=== PATIENT | male | born 1950 | race Caucasian/White ===

== ENCOUNTER 2017-08-16 15:55 | Inpatient (IN) | payer MEDICARE ==
[~2017-08-16] VITALS: Ht 180.3 cm; Wt 181.6 kg
[~2017-08-16 15:55] MED LIST: ASPI81 PO; HYDR-3535 PO; MOBI7.5T PO; SIMV80TA PO; TAB-TAB PO; VITA100017 PO
[2017-08-16 16:04] VITALS: BP 170/71; PULSE 67; RESP 32; TEMP 100.2; O2SAT 88
[2017-08-16] MEDS ORDERED: methylPREDNISolone SOD SUCC 125 MG/2 ML VIAL IV PUSH ONE (16:30)
[2017-08-16] MEDS ORDERED: SIMV80TA PO (16:32)
[2017-08-16] MEDS ORDERED: FISHCAP4 PO (16:32)
[2017-08-16] MEDS ORDERED: MULTTAB67 PO (16:32)
[2017-08-16] MEDS ORDERED: HYDR-3583 PO (16:32)
[2017-08-16] MEDS ORDERED: MELO7.5T27 PO (16:32)
[2017-08-16] MEDS ORDERED: LISI10TA3 PO (16:32)
[2017-08-16] MEDS ORDERED: ASPI-516 CHEW (16:32)
[2017-08-16] MEDS ORDERED: METF500T PO (16:32)
--- NOTE | 2017-08-16 16:37 | PD ---
HPI Chief Complaint: Cold / Flu Symptoms Time Seen by Provider: 16:30 Travel History International Travel<30 days: No Contact w/Intl Traveler<30days: No Traveled to known affect area: No History of Present Illness HPI 66-year-old male complains of cough and congestion fever and shortness of breath. Patient states that his symptoms started 4 days ago. Patient states that he has aching headache frontal headache. Patient denies any visual change. Patient denies any neck pain. Patient states he had productive cough. Patient complained of shortness of breath. Patient denies any chest pain. Patient states that he has nausea. Patient denies any vomiting or diarrhea. Patient denies any back pain. Patient complains generalized malaise and weakness. Patient denies history of COPD or asthma. Patient use his sister's inhaler occasionally for shortness of breath. PFSH Past Medical History Hx Anticoagulant Therapy: No Arthritis: Yes Cancer: No Cardiovascular Problems: No High Cholesterol: Yes Chemotherapy: No COPD: Yes (sleep apnea) Cerebrovascular Accident: No Diabetes: Yes Patient Takes Glucophage: Yes Diminished Hearing: No Endocrine: No Gastrointestinal Disorders: Yes (RECENT SAMONELLA ) Genitourinary: No Hepatitis: No Hiatal Hernia: No Hypertension: Yes Immune Disorder: No Medical other: Yes (AAA) Musculoskeletal: Yes (ARTHRITIS) Neurologic: No Psychiatric: No Reproductive: No Respiratory: Yes (SLEEP APNEA/ CPAP) Thyroid Disease: No Tetanus Vaccination: Unknown Past Surgical History Abdominal Surgery: Yes (UMB. HERNIA REP.) AICD: No Cardiac Surgery: No Ear Surgery: No Endocrine Surgery: No Eye Surgery: Yes (keaton cataract removal) Genitourinary Surgery: No Gynecologic Surgery: No Joint Replacement: Yes (KEATON. KNEES) Neurologic Surgery: No Oral Surgery: No Pacemaker: No Thoracic Surgery: No Other Surgery: Yes (sebacious cyst removal neck ) Social History Alcohol Use: No Tobacco Use: Yes (1PPD) Substance Use: No Allergies-Medications (Allergen,Severity, Reaction): Coded Allergies: penicillin G (Unverified Allergy, Unknown, 08/16/17) Uncoded Allergies: CILLINS (Allergy, Severe, 03/07/15) Reported Meds & Prescriptions Reported Meds & Active Scripts Active Reported Fish Oil + D3 (Fish Oil-Cholecalciferol) 1,200-1,000 Mg-Unit Cap 1 Cap PO DAILY Hydrocodone-Acetaminophen 10-325 mg Tab 1 Tab PO Q6H PRN Meloxicam 7.5 Mg Tab 7.5 Mg PO BID Multiple Vitamin 1 Tab 1 Tab PO DAILY Metformin (Metformin HCl) 500 Mg Tab 500 Mg PO BIDPC Lisinopril 10 Mg Tab 10 Mg PO DAILY Simvastatin 80 Mg Tab 80 Mg PO DAILY Aspirin 81 Mg Chew 81 Mg CHEW DAILY Review of Systems General / Constitutional: Positive: Fever Eyes: No: Visual changes HENT: Positive: Headaches Cardiovascular: No: Chest Pain or Discomfort Respiratory: Positive: Cough, Shortness of Breath Gastrointestinal: Positive: Nausea, No: Abdominal Pain Genitourinary: No: Dysuria Musculoskeletal: No: Pain Skin: No Rash Neurologic: No: Weakness Psychiatric: No: Depression Endocrine: No: Polydipsia Hematologic/Lymphatic: No: Easy Bruising Physical Exam Narrative GENERAL: Well-nourished, well-developed patient. SKIN: Focused skin assessment warm/dry. HEAD: Normocephalic. EYES: No scleral icterus. No injection or drainage. NECK: Supple, trachea midline. No JVD or lymphadenopathy. CARDIOVASCULAR: Regular rate and rhythm without murmurs, gallops, or rubs. RESPIRATORY: Breath sounds equal bilaterally. No accessory muscle use. Patient has moderate amount of expiratory wheezes bilaterally. Patient has rhonchi bibasilar. GASTROINTESTINAL: Abdomen soft, non-tender, nondistended. MUSCULOSKELETAL: No cyanosis, or edema. BACK: Nontender without obvious deformity. No CVA tenderness. Neurologic exam normal. Data Data Last Documented VS Vital Signs Date Time Temp Pulse Resp B/P (MAP) Pulse Ox O2 Delivery O2 Flow Rate FiO2 08/16/17 16:50 65 28 112/54 (73) 94 Nasal Cannula 3.00 08/16/17 16:04 100.2 Orders Orders Complete Blood Count With Diff (08/16/17 16:30) Comprehensive Metabolic Panel (08/16/17 16:30) B-Type Natriuretic Peptide (08/16/17 16:30) Act Partial Throm Time (Ptt) (08/16/17 16:30) Prothrombin Time / Inr (Pt) (08/16/17 16:30) Ckmb (Isoenzyme) Profile (08/16/17 16:30) Troponin I (08/16/17 16:30) Influenzae A/B Antigen (08/16/17 16:30) Blood Culture (08/16/17 16:30) Iv Access Insert/Monitor (08/16/17 16:30) Electrocardiogram (08/16/17 16:30) Ecg Monitoring (08/16/17 16:30) Oximetry (08/16/17 16:30) Oxygen Administration (08/16/17 16:30) Chest, Single Ap (08/16/17 16:30) Sodium Chloride 0.9% Flush (Ns Flush) (08/16/17 16:30) Methylprednisolone So Succ Inj (Solumedr (08/16/17 16:30) Albuterol-Ipratropium Neb (Duoneb Neb) (08/16/17 16:30) Lactic Acid (08/16/17 16:30) CKMB (08/16/17 16:30) CKMB% (08/16/17 16:30) Levofloxacin 750 Mg Premix Inj (Levaquin (08/16/17 17:30) Labs Laboratory Tests Test 08/16/17 16:30 White Blood Count 6.5 TH/MM3 Red Blood Count 3.95 MIL/MM3 Hemoglobin 12.2 GM/DL Hematocrit 37.0 % Mean Corpuscular Volume 93.5 FL Mean Corpuscular Hemoglobin 30.9 PG Mean Corpuscular Hemoglobin Concent 33.0 % Red Cell Distribution Width 17.4 % Platelet Count 122 TH/MM3 Mean Platelet Volume 8.1 FL Neutrophils (%) (Auto) 84.9 % Lymphocytes (%) (Auto) 9.7 % Monocytes (%) (Auto) 4.9 % Eosinophils (%) (Auto) 0.0 % Basophils (%) (Auto) 0.5 % Neutrophils # (Auto) 5.6 TH/MM3 Lymphocytes # (Auto) 0.6 TH/MM3 Monocytes # (Auto) 0.3 TH/MM3 Eosinophils # (Auto) 0.0 TH/MM3 Basophils # (Auto) 0.0 TH/MM3 CBC Comment DIFF FINAL Differential Comment Prothrombin Time 10.8 SEC Prothromb Time International Ratio 1.1 RATIO Activated Partial Thromboplast Time 28.0 SEC Blood Urea Nitrogen 12 MG/DL Creatinine 0.85 MG/DL Random Glucose 151 MG/DL Total Protein 8.3 GM/DL Albumin 3.7 GM/DL Calcium Level 8.5 MG/DL Alkaline Phosphatase 57 U/L Aspartate Amino Transf (AST/SGOT) 55 U/L Alanine Aminotransferase (ALT/SGPT) 45 U/L Total Bilirubin 0.5 MG/DL Sodium Level 134 MEQ/L Potassium Level 4.0 MEQ/L Chloride Level 100 MEQ/L Carbon Dioxide Level 24.8 MEQ/L Anion Gap 9 MEQ/L Estimat Glomerular Filtration Rate 90 ML/MIN Lactic Acid Level 1.4 mmol/L Total Creatine Kinase 372 U/L Creatine Kinase MB 2.6 NG/ML Creatine Kinase MB % 0.7 % Troponin I 0.02 NG/ML B-Type Natriuretic Peptide 66 PG/ML MDM Medical Decision Making Medical Screen Exam Complete: Yes Emergency Medical Condition: Yes Interpretation(s) 1723 PM. CBC WBC 6.5. Hemoglobin 12.2 hematocrit 37.0. Platelet 122. 84 neutrophil. Sodium 134. Lactic acid 1.4. AST 55. Cardiac enzymes are normal. BNP 66. Influenza AB antigen negative. Differential Diagnosis Differential diagnosis including bronchitis, pneumonia, acted with disease, viral syndrome. Narrative Course 66-year-old male with headache, fever, coughing congestion and shortness of breath. Albuterol with Atrovent unit dose treatment 3. Solu-Medrol 125 mg IV. Levaquin 750 mg IV given. 1733 PM. Reexamination patient still has moderate amount of expiratory wheezes. Patient still complaining of shortness of breath. Diagnosis Primary Impression: Reactive airway disease Qualified Codes: J45.41 - Moderate persistent asthma with (acute) exacerbation Additional Impression: Bronchitis Admitting Information Admitting Physician Requests: Admit Stephan Zelaya MD Aug 16, 2017 16:37
[2017-08-16] MEDS: RESP: ALBUTEROL 2.5 MG/IPRATROPIUM 0.5 MG NEB (SCH) INH (16:40)
[2017-08-16 16:43] VITALS: O2SAT 93
[2017-08-16 16:50] VITALS: BP 112/54; PULSE 65; RESP 28; O2SAT 94
[2017-08-16 16:50] LABS: AUTOMATED NEUTROPHIL # 5.6 TH/MM3 (1.8-7.7); BASOPHIL % 0.5 % (0.0-2.0); HEMOGLOBIN 12.2 GM/DL (13.0-17.0); LYMPH % 9.7 % (9.0-44.0); LYMPHOCYTE # 0.6 TH/MM3 (1.0-4.8); MEAN CELL VOLUME 93.5 FL (80.0-100.0); MEAN CORPUSCULAR HEMOGLOBIN 30.9 PG (27.0-34.0); MEAN PLATELET VOLUME 8.1 FL (7.0-11.0); MONO % 4.9 % (0.0-8.0); MONOCYTE # 0.3 TH/MM3 (0-0.9); NEUT % 84.9 % (16.0-70.0); PLATELET COUNT 122 TH/MM3 (150-450); RED BLOOD COUNT 3.95 MIL/MM3 (4.50-5.90); RED CELL DISTRIBUTION WIDTH 17.4 % (11.6-17.2); WHITE BLOOD COUNT 6.5 TH/MM3 (4.0-11.0)
[2017-08-16 17:01] LABS: CHLORIDE 100 MEQ/L (98-107); SODIUM (NA) 134 MEQ/L (136-145)
[2017-08-16 17:04] LABS: CALCIUM 8.5 MG/DL (8.5-10.1)
[2017-08-16 17:05] LABS: ALBUMIN 3.7 GM/DL (3.4-5.0); BICARBONATE 24.8 MEQ/L (21.0-32.0); BLOOD UREA NITROGEN 12 MG/DL (7-18); GLUCOSE,RANDOM 151 MG/DL (74-106)
[2017-08-16 17:06] LABS: INTERNATIONAL NORMALIZED RATIO 1.1 RATIO; PROTHROMBIN TIME - PATIENT 10.8 SEC (9.8-11.6)
[2017-08-16 17:08] LABS: ALT (GPT) 45 U/L (12-78); AST (GOT) 55 U/L (15-37); CREATININE 0.85 MG/DL (0.60-1.30); GLOMERULAR FILTRATION RATE 90 ML/MIN (>89)
[2017-08-16 17:09] LABS: TOTAL BILIRUBIN ADULT 0.5 MG/DL (0.2-1.0); TOTAL PROTEIN 8.3 GM/DL (6.4-8.2)
[2017-08-16 17:11] LABS: ALKALINE PHOSPHATASE 57 U/L (45-117)
[2017-08-16 17:13] LABS: TROPONIN I 0.02 NG/ML (0.02-0.05)
--- NOTE | 2017-08-16 17:18 | RADRPT ---
EXAM DATE/TIME: 08/16/2017 17:07 [facility] COMPARISON: CHEST SINGLE AP, January 07, 2015, 15:22. INDICATIONS : Shortness of breath. MEDICAL HISTORY : Hypertension. Chronic obstructive pulmonary disease. Aneurysm, abdominal. SURGICAL HISTORY : None. ENCOUNTER: Initial ACUITY: 1 day PAIN SCORE: 0/10 LOCATION: Bilateral chest FINDINGS: There is cardiomegaly, linear scarring in the right midlung and degenerative changes of the spine. No consolidation. CONCLUSION: No acute disease. Jose Gibbs MD on August 16, 2017 at 17:16 Board Certified Radiologist. This report was verified electronically.
[2017-08-16] MEDS ORDERED: LEVOFLOXACIN 750 MG PREMIX INJ 150 ML IV ONE (17:30)
[2017-08-16] MEDS ORDERED: DEXTROSE 50% IN WATER 50 ML VIAL(D50) IV PUSH PRN (18:45)
[2017-08-16] MEDS ORDERED: GLUCAGON 1 MG/ML VIAL OTHER PRN (18:45)
[2017-08-16 20:02] VITALS: BP 155/92; PULSE 69; RESP 22; TEMP 98.5; O2SAT 94
[2017-08-16 20:08] VITALS: O2SAT 93
[2017-08-16] MEDS: RESP: ALBUTEROL 2.5 MG/IPRATROPIUM 0.5 MG NEB (SCH) NEB (20:09)
[2017-08-16] MEDS: INSULIN ASPART SUPPLEMENTAL SCALE SQ SCH (21:58)
[2017-08-16] MEDS: MELOXICAM 7.5 MG TAB PO SCH (22:02)
[2017-08-16] MEDS: ENOXAPARIN SODIUM 40 MG/0.4 ML SYRINGE SQ SCH (22:03)
[2017-08-16] MEDS: methylPREDNISolone SOD SUCC 40 MG/1 ML VIAL IV PUSH SCH (22:03)
[2017-08-16] MEDS: ACETAMINOPHEN/HYDROcodone 325 MG/10 MG TAB PO PRN (22:18)
[2017-08-17] VITALS (7 sets, daily range): BP systolic 135–181; BP diastolic 70–96; PULSE 62–84; RESP 22–24; TEMP 96.5–98.1; O2SAT 92–96
[2017-08-17] MEDS: RESP: ALBUTEROL 2.5 MG/IPRATROPIUM 0.5 MG NEB (SCH) NEB ×7 (00:02→23:11)
[2017-08-17] MEDS: methylPREDNISolone SOD SUCC 40 MG/1 ML VIAL IV PUSH SCH ×3 (06:25→21:30)
[2017-08-17 07:00] LABS: AUTOMATED NEUTROPHIL # 4.2 TH/MM3 (1.8-7.7); BASOPHIL % 0.4 % (0.0-2.0); HEMATOCRIT 34.9 % (39.0-51.0); HEMOGLOBIN 11.6 GM/DL (13.0-17.0); LYMPHOCYTE # 0.7 TH/MM3 (1.0-4.8); MEAN CELL VOLUME 93.6 FL (80.0-100.0); MEAN CORPUSCULAR HGB CONC 33.2 % (32.0-36.0); MEAN PLATELET VOLUME 8.5 FL (7.0-11.0); MONO % 2.1 % (0.0-8.0); MONOCYTE # 0.1 TH/MM3 (0-0.9); NEUT % 83.5 % (16.0-70.0); PLATELET COUNT 111 TH/MM3 (150-450); RED BLOOD COUNT 3.72 MIL/MM3 (4.50-5.90); RED CELL DISTRIBUTION WIDTH 17.1 % (11.6-17.2)
--- NOTE | 2017-08-17 07:07 | HHI.PR ---
Subjective Remarks Still coughing and wheezing. Still requiring oxygen. Objective Vitals Vital Signs Date Time Temp Pulse Resp B/P (MAP) Pulse Ox O2 Delivery O2 Flow Rate FiO2 08/17/17 00:00 98.1 63 22 135/70 (91) 92 08/16/17 20:08 93 Nasal Cannula 3.00 08/16/17 20:02 98.5 69 22 155/92 (113) 94 08/16/17 19:47 08/16/17 16:50 65 28 112/54 (73) 94 Nasal Cannula 3.00 08/16/17 16:50 94 Nasal Cannula 3.00 08/16/17 16:43 93 Nasal Cannula 3.00 08/16/17 16:33 93 Nasal Cannula 3.00 08/16/17 16:16 32 88 Room Air 08/16/17 16:04 100.2 67 32 170/71 (104) 88 Result Diagram: 08/16/17 1630 08/16/17 1630 Other Results Laboratory Tests Test 08/16/17 16:30 08/17/17 05:40 White Blood Count 6.5 TH/MM3 Red Blood Count 3.95 MIL/MM3 Hemoglobin 12.2 GM/DL Hematocrit 37.0 % Mean Corpuscular Volume 93.5 FL Mean Corpuscular Hemoglobin 30.9 PG Mean Corpuscular Hemoglobin Concent 33.0 % Red Cell Distribution Width 17.4 % Platelet Count 122 TH/MM3 Mean Platelet Volume 8.1 FL Neutrophils (%) (Auto) 84.9 % Lymphocytes (%) (Auto) 9.7 % Monocytes (%) (Auto) 4.9 % Eosinophils (%) (Auto) 0.0 % Basophils (%) (Auto) 0.5 % Neutrophils # (Auto) 5.6 TH/MM3 Lymphocytes # (Auto) 0.6 TH/MM3 Monocytes # (Auto) 0.3 TH/MM3 Eosinophils # (Auto) 0.0 TH/MM3 Basophils # (Auto) 0.0 TH/MM3 CBC Comment DIFF FINAL Differential Comment Prothrombin Time 10.8 SEC Prothromb Time International Ratio 1.1 RATIO Activated Partial Thromboplast Time 28.0 SEC Blood Urea Nitrogen 12 MG/DL Creatinine 0.85 MG/DL Random Glucose 151 MG/DL Total Protein 8.3 GM/DL Albumin 3.7 GM/DL Calcium Level 8.5 MG/DL Alkaline Phosphatase 57 U/L Aspartate Amino Transf (AST/SGOT) 55 U/L Alanine Aminotransferase (ALT/SGPT) 45 U/L Total Bilirubin 0.5 MG/DL Sodium Level 134 MEQ/L Potassium Level 4.0 MEQ/L Chloride Level 100 MEQ/L Carbon Dioxide Level 24.8 MEQ/L Anion Gap 9 MEQ/L Estimat Glomerular Filtration Rate 90 ML/MIN Lactic Acid Level 1.4 mmol/L Total Creatine Kinase 372 U/L Creatine Kinase MB 2.6 NG/ML Creatine Kinase MB % 0.7 % Troponin I 0.02 NG/ML B-Type Natriuretic Peptide 66 PG/ML Lab today still pending. Imaging Last Impressions Chest X-Ray 08/16/17 1630 Signed Impressions: Service Date/Time: Wednesday, August 16, 2017 17:07 - CONCLUSION: No acute disease. Jose Gibbs MD Objective Remarks Exam: Morbidly obese white male. 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 Continue Levaquin. He is still on oxygen. Will change to admission status. When his wheezing improves consideration of doing a PFT would be helpful to stratify what kind of underlying lung disease he may have. Dr Garciaiella to take over for me tomorrow. Continue Lovenox for DVT prophylaxis. Syed Ch MD Aug 17, 2017 07:07
[2017-08-17 07:13] LABS: BICARBONATE 26.4 MEQ/L (21.0-32.0); CALCIUM 8.5 MG/DL (8.5-10.1)
[2017-08-17 07:17] LABS: CREATININE 0.76 MG/DL (0.60-1.30)
[2017-08-17] MEDS: INSULIN ASPART SUPPLEMENTAL SCALE SQ SCH ×4 (08:00→21:20)
[2017-08-17] MEDS: MULTIVITAMIN TAB PO SCH (09:17)
[2017-08-17] MEDS: MELOXICAM 7.5 MG TAB PO SCH ×2 (09:17→21:19)
[2017-08-17] MEDS: LISINOPRIL 10 MG TAB PO SCH (09:17)
[2017-08-17] MEDS: metFORMIN HCL 500 MG TAB PO SCH ×2 (09:18→18:00)
[2017-08-17] MEDS: ASPIRIN 81 MG CHEW TAB CHEW SCH (09:18)
[2017-08-17] MEDS: LEVOFLOXACIN 750 MG TAB PO SCH (09:18)
[2017-08-17] MEDS: ATORVASTATIN 40 MG TAB PO SCH (09:18)
[2017-08-17] MEDS: ACETAMINOPHEN/HYDROcodone 325 MG/10 MG TAB PO PRN (09:21)
--- NOTE | 2017-08-17 10:27 | MH ---
cc: Syed Ch MD DATE OF ADMISSION: 08/16/2017 ADMISSION DIAGNOSES: 1. Possible chronic obstructive pulmonary disease with bronchitis and acute exacerbation. 2. Hypertension. 3. Hyperlipidemia 4. Type 2 diabetes mellitus. 5. Abdominal aortic aneurysm. 6. Obstructive sleep apnea. 7. Morbid obesity. 8. Chronic low back pain. 9. History of fatty liver. 10. Mild thrombocytopenia. PERTINENT HISTORY OF PRESENT ILLNESS This is a 66-year-old white male who started with a cough about 4 days ago, with some low grade fever. He has had some gradual increased wheezing and shortness of breath. He has been using a nebulizer machine that his has at home. He came to the ED, where his O2 sat was a little low. He is not on oxygen at home. He has been giving breathing treatments in the ED, but still wheezing and tight and requiring 3 liters of oxygen to maintain his oxygen saturations in the low 90s. He was given Levaquin intravenous. A rapid flu test done was negative. His chest x-ray did not show any obvious infiltrates or pneumonia. He was given some Solu-Medrol in the ED as well. He denies ever being told he had any COPD, but his EHR had listed that he had emphysema and COPD, but I could not find any recent pulmonary function testing to confirm whether he has obstructive process of his lungs. He is admitted for further nebulizer treatments, steroid treatment, antibiotics and oxygen therapy. PAST MEDICAL HISTORY: He has a small abdominal aortic aneurysm. He has type 2 diabetes mellitus, with no diabetic nephropathy and neuropathy. He has hypertension, hyperlipidemia, morbid obesity. He has been using CPAP for several years for obstructive sleep apnea. He has had no cancer, no heart disease, no stroke or seizures. He mentions he had peptic ulcer disease many years ago. He denies any history of colon polyps and had a colonoscopy done in 2016. He has had pneumonia once in the past. PAST SURGICAL HISTORY: He has had bilateral total knee replacements. He has had cataract surgery and a lens implant in both eyes. He had umbilical hernia repaired. He had a cyst removed from the back of his neck, a soft tissue cyst. He had a colonoscopy 12/11/2015. ALLERGIES: HE IS ALLERGIC TO PENICILLIN. MEDICATIONS: He is on meloxicam 7.5 milligrams twice a day, Lortab 10/325 1 every 6 hours for chronic back pain, aspirin 81 milligrams dose, simvastatin 80 milligrams a day, lisinopril 10 milligrams a day, metformin 500 milligrams twice a day. He does not regularly use any inhaler or nebulizer treatments at home. He takes a multivitamin a day and vitamin C. FAMILY HISTORY: His father at 61 of a heart attack. His mother at 76, had multiple problems. She had Alzheimer's disease, pacemaker, thyroid disease. SOCIAL HISTORY: He is . He still smokes 1 pack a day, started smoking at about age 13. He does not use alcohol, is retried. 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 REVIEW OF SYSTEMS: GENERAL: He has had low grade fever. Denies any body aches. He has had just slight headaches. HEENT: He has had just slight runny nose. No sore throat. CARDIOVASCULAR: No pleuritic chest pain or chest pain. No palpitations. PULMONARY: As mentioned. He has no hemoptysis. Cough is primarily dry. He has not been able to get much mucous up, but he does hear mucous in his lungs. GASTROINTESTINAL, ABDOMEN: He did have some couple dry heave episodes today. No vomiting up any gastric material. He had no diarrhea, melena, rectal bleeding, constipation. No abdominal pain. GENITOURINARY: He has been urinating frequently. No dysuria. MUSCULOSKELETAL: Chronic low back pain. EXTREMITIES: He denies any edema. NEUROLOGIC: Without any focal complaints, other than he does have some neuropathy, with some numbness in his toes. PHYSICAL EXAMINATION: GENERAL: Morbidly obese white male, with just slight respiratory distress. VITAL SIGNS: His respirations are 24-28, pulse is 65, temperature was 100.2, O2 saturation 94% on 3 liters. HEENT, NECK: TMs clear. Nose, neck and mouth without any inflammation, bleeding. No JVD. No bruit. CARDIOVASCULAR: Regular rate and rhythm. No murmur. PULMONARY: Lungs have scattered wheezes and rhonchi. ABDOMEN: Morbidly obese, which makes exam difficult. No obvious tenderness. EXTREMITIES: With no edema. He has actually good pulses in both feet. Has just some stasis skin changes in the ankle region. NEUROLOGIC: Oriented x 3. Cranial nerves intact. Motor strength symmetrical. LABORATORY DATA, IMAGING: His white count was normal at 6.5, hemoglobin 12.2, MCV normal, platelets were just a little low at 122,000. His sodium was 134, potassium 4.0, chloride 100, CO2 24.8, BUN 12, creatinine 0.85, glucose was 151, AST was 55, ALT 45. He has had a prior CAT scan of his abdomen that showed fatty liver. His total CK was a little high at 372, but his MB was normal and MB percent was normal. Troponin 0.02. Total protein 8.3, albumin 3.7. BNP 66. Lactic acid 1.4. INR 1.1. Chest x-ray showed no acute process. ASSESSMENT: As noted. PLAN: He will be admitted and maintained on oxygen. We will give him Solu-Medrol 40 milligrams every 8 hours. We will maintain him on metformin for his diabetes, but also do some sliding scale coverage for blood sugar elevation since he will be getting steroids. He will be given DuoNeb nebulizer treatments. We will give him some Lovenox for DVT prophylaxis. He can use his own CPAP. MD SOLIS Posey/YANETH , 07:52 PM , 09:08 PM
--- NOTE | 2017-08-17 18:39 | MB ---
cc: Gamaliel Peck MD DATE OF CONSULT: 08/17/2017 REQUESTING PHYSICIAN: Dr. Syed Ch. REASON FOR CONSULTATION: Respiratory insufficiency. HISTORY OF PRESENT ILLNESS: Mr. Montes is a morbidly obese 66-year-old white male with a history of diabetes mellitus, hypertension, obstructive sleep apnea. He uses C-PAP machine at home. He has not been feeling well for at least four days. He has had cough and congestion, increased wheezing, not able to bring up any phlegm, did not have fever or chills, no night sweats. Denies any chest pain. He can barely walk inside the house. He was brought to the hospital. He had a workup done that showed a WBC count of 6.5, hemoglobin 12.2, hematocrit 37, MCV 93, platelet count 122. Sodium 136, potassium 4.4, chloride 102, CO2 26, BUN 15, creatinine 0.76. His INR is 1.1. His chest x-ray shows no acute infiltrate. PAST MEDICAL HISTORY: Significant for: 1. History of hypertension. 2. Diabetes mellitus. 3. Obstructive sleep apnea. 4. Chronic back pain. 5. Morbid obesity. 6. History of thrombocytopenia. 7. Hyperlipidemia. 8. History of both knee replacements. 9. History of large sebaceous cyst removed from the back of his neck. MEDICATIONS: He is currently takin. Aspirin 81 mg. 3. Metformin 500 mg twice per day. 4. Lipitor 40 mg per day. 5. Levaquin 750 mg per day. 6. Solu-Medrol 40 mg q. 8 hours. 7. He is on insulin. 8. Meloxicam 7.5 mg twice per day. 9. Lovenox 40 mg per day. 10. Albuterol Atrovent nebulizer treatment. 11. Hydrocodone 10/325 q. 6 hours p.r.n. ALLERGIES: ALLERGIC TO PENICILLIN. SOCIAL HISTORY: He is for 15-1/2 years. 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 He has a history of smoking since fifth grade and continues to smoke one pack of cigarettes per day. No alcohol use. FAMILY HISTORY: He has no children. REVIEW OF SYSTEMS: He can barely walk. No headache or dizziness. No malignancy. No DVT or pulmonary embolism. PHYSICAL EXAMINATION: GENERAL: Markedly obese male weighing 188 kg. His BMI is 58. He is mildly short of breath even at rest. His blood pressure is 151/85, heart rate 84, respirations 24, temperature 97.7. HEENT EXAMINATION: Pupils are equal and reactive to light. He has had bilateral cataract surgery. Oral mucosa, nasal mucosa normal. NECK: Supple. JVD not raised. CHEST: Bilateral rhonchi. CARDIOVASCULAR: S1, S2 normal. ABDOMEN: Soft, nontender, distended. Bowel sounds are present. EXTREMITIES: 1+ pedal edema. 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 No focal deficit. IMPRESSION: 1. Chronic obstructive pulmonary disease with exacerbation. He still has wheezing. 2. Bronchitis. 3. Obstructive sleep apnea. 4. Morbid obesity. 5. Diabetes mellitus. 6. Hypertension. 7. Arthritis. PLAN: I have discussed with the patient. We will check his pulmonary function studies, check his blood gases. I will also evaluate him for home oxygen therapy. Continue his antibiotic, IV Solu-Medrol, monitor his blood sugar, aerosol treatment with albuterol and Atrovent. Symbicort was started 160/4.5 twice per day. Further treatment will depend upon his course in the hospital. Thank you Dr. Syed Ch for this consult. MD CHRISTINE Chan/JAS , 06:08 PM , 06:38 PM [facility]
--- NOTE | 2017-08-17 20:11 | EKG ---
Date Performed: 08/16/2017 Time Performed: 17:06:17 PTAGE: 66 years EKG: Sinus rhythm PREVIOUS TRACING : 01/07/2015 14.56 Since the previous tracing, no significant change not ed DOCTOR: Dayan Mcnair Interpretating Date/Time 08/17/2017 20:10:42
[2017-08-17] MEDS ORDERED: FUROSEMIDE 20 MG/2 ML VIAL IV PUSH ONE (21:00)
[2017-08-17] MEDS: BUDESONIDE-FORMOTEROL 160/4.5 MCG INHALER INH SCH (21:19)
--- NOTE | 2017-08-17 21:22 | RADRPT ---
EXAM DATE/TIME: 08/17/2017 20:50 [facility] COMPARISON: CHEST SINGLE AP, August 16, 2017, 17:07. INDICATIONS : Short of breath. Cough. MEDICAL HISTORY : Hypertension. Chronic obstructive pulmonary disease. Aneurysm, abdominal. SURGICAL HISTORY : None. ENCOUNTER: Subsequent ACUITY: 2 days PAIN SCORE: 0/10 LOCATION: Bilateral chest FINDINGS: A single view of the chest demonstrates the lungs to be symmetrically aerated without evidence of mas s, infiltrate or effusion. The cardiomediastinal contours are unremarkable. Osseous structures are intact. CONCLUSION: No acute cardiopulmonary disease demonstrated. Walter Ambriz MD on August 17, 2017 at 21:19 Board Certified Radiologist. This report was verified electronically.
[2017-08-17] MEDS: ENOXAPARIN SODIUM 40 MG/0.4 ML SYRINGE SQ SCH (21:30)
[2017-08-18] VITALS: BP 166/79; PULSE 67; RESP 22; TEMP 97.7; O2SAT 94
[2017-08-18] MEDS: RESP: ALBUTEROL 2.5 MG/IPRATROPIUM 0.5 MG NEB (SCH) NEB ×6 (04:19→23:07)
[2017-08-18] MEDS: methylPREDNISolone SOD SUCC 40 MG/1 ML VIAL IV PUSH SCH ×3 (05:12→21:01)
[2017-08-18 07:31] VITALS: O2SAT 93
[2017-08-18] MEDS: INSULIN ASPART SUPPLEMENTAL SCALE SQ SCH ×4 (08:24→22:13)
[2017-08-18] MEDS: MELOXICAM 7.5 MG TAB PO SCH ×2 (08:24→21:01)
[2017-08-18] MEDS: LEVOFLOXACIN 750 MG TAB PO SCH (08:24)
[2017-08-18] MEDS: metFORMIN HCL 500 MG TAB PO SCH ×2 (08:25→17:13)
[2017-08-18] MEDS: LISINOPRIL 10 MG TAB PO SCH (08:25)
[2017-08-18] MEDS: MULTIVITAMIN TAB PO SCH (08:25)
[2017-08-18] MEDS: ASPIRIN 81 MG CHEW TAB CHEW SCH (08:25)
[2017-08-18] MEDS: ACETAMINOPHEN/HYDROcodone 325 MG/10 MG TAB PO PRN ×2 (08:26→13:57)
[2017-08-18] MEDS: ATORVASTATIN 40 MG TAB PO SCH (08:26)
[2017-08-18] MEDS: SODIUM CHLORIDE 0.9% FLUSH 10 ML FLUSH IVF PRN (08:27)
[2017-08-18] MEDS: BUDESONIDE-FORMOTEROL 160/4.5 MCG INHALER INH SCH ×2 (08:27→21:00)
--- NOTE | 2017-08-18 10:47 | HHI.PR ---
Subjective Remarks Patient with continued rhonchi bilateral ,had rales last night given IV lasix and chest xray was unremarkable i discussed with patient should have 3 days of monitoring at rehab. I do not feel he is stable for discharge home . Objective Vitals GENERAL: SKIN: Warm and dry. HEAD: Atraumatic. Normocephalic. EYES: Pupils equal and round. No scleral icterus. No injection or drainage. ENT: No nasal bleeding or discharge. Mucous membranes pink and moist. NECK: Trachea midline. No JVD. CARDIOVASCULAR: Regular rate and rhythm. RESPIRATORY: No accessory muscle use. Bilateral rhonchi bases GASTROINTESTINAL: Abdomen soft, non-tender, nondistended. Hepatic and splenic margins not palpable. MUSCULOSKELETAL: Extremities without clubbing, cyanosis, or edema. No obvious deformities. NEUROLOGICAL: Awake and alert. No obvious cranial nerve deficits. Motor grossly within normal limits. Five out of 5 muscle strength in the arms and legs. Normal speech. PSYCHIATRIC: Appropriate mood and affect; insight and judgment normal. Vital Signs Date Time Temp Pulse Resp B/P (MAP) Pulse Ox O2 Delivery O2 Flow Rate FiO2 08/18/17 07:31 93 Nasal Cannula 3.00 08/18/17 00:00 97.7 67 22 166/79 (108) 94 08/17/17 20:02 94 Nasal Cannula 3.00 08/17/17 20:00 96.5 66 22 160/79 (106) 92 08/17/17 17:18 97.7 84 24 161/85 (110) 93 08/17/17 12:00 96.5 74 24 166/96 (119) 93 Result Diagram: 08/17/17 0540 08/17/17 0540 Imaging Last Impressions Chest X-Ray 08/16/17 1630 Signed Impressions: Service Date/Time: Wednesday, August 16, 2017 17:07 - CONCLUSION: No acute disease. Jose Gibbs MD Objective Remarks Exam: Morbidly obese white male. HEENT: Pupils equal, no scleral icterus, mouth negative Neck: No JVD Heart: RRR Lungs: still scattered wheezing Abdomen: very obese, nontender, soft Extremities: No edema Neuro: Alert, oriented A/P Problem List: (1) Reactive airway disease ICD Codes: J45.909 - Unspecified asthma, uncomplicated Status: Acute Plan: still with rhonchi Pulmonary added symbicort and will need PFT when more stable i believe will need rehab. 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 Continue Levaquin. He is still on oxygen. Will change to admission status. When his wheezing improves consideration of doing a PFT would be helpful to stratify what kind of underlying lung disease he may have. Dr Garciaiella to take over for me tomorrow. Continue Lovenox for DVT prophylaxis. Discharge Planning will attempt to send to rehab Problem Qualifiers (1) Reactive airway disease: Qualified Codes: J45.41 - Moderate persistent asthma with (acute) exacerbation Francesco Knutson MD Aug 18, 2017 10:47
[2017-08-18 11:50] VITALS: BP 159/72; PULSE 61; RESP 20; TEMP 97; O2SAT 91
[2017-08-18 15:41] VITALS: BP 175/79; PULSE 60; RESP 20; TEMP 97.2; O2SAT 90
[2017-08-18 19:40] VITALS: O2SAT 92
--- NOTE | 2017-08-18 20:08 | HHI.PR ---
Subjective Remarks 66 YOMorbidly obese Wm with COPD exac,ISHMAEL Breathing better Slept today Uses CPAP No fever or chills Objective Vital Signs Vital Signs Date Time Temp Pulse Resp B/P (MAP) Pulse Ox O2 Delivery O2 Flow Rate FiO2 08/18/17 15:41 97.2 60 20 175/79 (111) 90 08/18/17 14:57 20 08/18/17 11:50 97.0 61 20 159/72 (101) 91 08/18/17 07:31 93 Nasal Cannula 3.00 08/18/17 00:00 97.7 67 22 166/79 (108) 94 I/O 08/17/17 08/17/17 08/17/17 08/18/17 08/18/17 08/18/17 07:00 15:00 23:00 07:00 15:00 23:00 Intake Total 280 ml 480 ml 460 ml 1080 ml Output Total 1 ml Balance 279 ml 480 ml 460 ml 1080 ml Intake Oral 280 ml 480 ml 460 ml 1080 ml Output Urine Total 1 ml # Voids 2 3 3 # Bowel Movements 0 1 0 0 Result Diagram: 08/17/17 0540 08/17/17 0540 Objective Remarks GENERAL: Morbidly obese Wm, mild sob SKIN: Warm and dry. HEAD: Normocephalic. EYES: No scleral icterus. No injection or drainage. NECK: Supple, trachea midline. No JVD or lymphadenopathy. CARDIOVASCULAR: Regular rate and rhythm without murmurs, gallops, or rubs. RESPIRATORY: Breath sounds equal bilaterally. No accessory muscle use. GASTROINTESTINAL: Abdomen soft, non-tender, nondistended. MUSCULOSKELETAL: No cyanosis, or edema. BACK: Nontender without obvious deformity. No CVA tenderness. A/P Assessment and Plan COPD exac Moebid obesity ISHMAEL DM HTN Arthritis PLAN: Aerosol nebs IV Solumedrol Cont Levaquin Symbicort 2 puffs bid CPAp at night and PRN Gamaliel Peck MD Aug 18, 2017 20:08
[2017-08-18 20:54] VITALS: BP 130/63; PULSE 63; RESP 19; TEMP 97.7; O2SAT 95
[2017-08-18] MEDS: ENOXAPARIN SODIUM 40 MG/0.4 ML SYRINGE SQ SCH (21:01)
[2017-08-19] VITALS (8 sets, daily range): BP systolic 126–163; BP diastolic 58–72; PULSE 51–57; RESP 18–22; TEMP 96.6–97.8; O2SAT 92–97
[2017-08-19] MEDS: RESP: ALBUTEROL 2.5 MG/IPRATROPIUM 0.5 MG NEB (SCH) NEB ×6 (03:42→23:04)
[2017-08-19] MEDS: methylPREDNISolone SOD SUCC 40 MG/1 ML VIAL IV PUSH SCH (05:50)
[2017-08-19] MEDS: INSULIN ASPART SUPPLEMENTAL SCALE SQ SCH ×4 (08:48→20:58)
[2017-08-19] MEDS: LEVOFLOXACIN 750 MG TAB PO SCH (08:48)
[2017-08-19] MEDS: ACETAMINOPHEN/HYDROcodone 325 MG/10 MG TAB PO PRN ×2 (08:49→17:20)
[2017-08-19] MEDS: metFORMIN HCL 500 MG TAB PO SCH ×2 (08:49→17:19)
[2017-08-19] MEDS: SODIUM CHLORIDE 0.9% FLUSH 10 ML FLUSH IVF PRN ×2 (08:49→20:59)
[2017-08-19] MEDS: LISINOPRIL 10 MG TAB PO SCH (08:50)
[2017-08-19] MEDS: MELOXICAM 7.5 MG TAB PO SCH ×2 (08:50→20:55)
[2017-08-19] MEDS: ATORVASTATIN 40 MG TAB PO SCH (08:50)
[2017-08-19] MEDS: MULTIVITAMIN TAB PO SCH (08:50)
[2017-08-19] MEDS: BUDESONIDE-FORMOTEROL 160/4.5 MCG INHALER INH SCH ×2 (08:50→22:22)
[2017-08-19] MEDS: ASPIRIN 81 MG CHEW TAB CHEW SCH (08:50)
[2017-08-19 09:27] LABS: AUTOMATED NEUTROPHIL # 6.2 TH/MM3 (1.8-7.7); BASOPHIL % 0.5 % (0.0-2.0); HEMATOCRIT 39.1 % (39.0-51.0); HEMOGLOBIN 12.9 GM/DL (13.0-17.0); LYMPH % 14.8 % (9.0-44.0); LYMPHOCYTE # 1.1 TH/MM3 (1.0-4.8); MEAN CELL VOLUME 92.1 FL (80.0-100.0); MEAN CORPUSCULAR HEMOGLOBIN 30.3 PG (27.0-34.0); MEAN CORPUSCULAR HGB CONC 32.9 % (32.0-36.0); MEAN PLATELET VOLUME 8.7 FL (7.0-11.0); MONO % 5.1 % (0.0-8.0); MONOCYTE # 0.4 TH/MM3 (0-0.9); NEUT % 79.6 % (16.0-70.0); PLATELET COUNT 139 TH/MM3 (150-450); RED BLOOD COUNT 4.24 MIL/MM3 (4.50-5.90); RED CELL DISTRIBUTION WIDTH 17.1 % (11.6-17.2); WHITE BLOOD COUNT 7.7 TH/MM3 (4.0-11.0)
[2017-08-19 09:48] LABS: CALCIUM 9.1 MG/DL (8.5-10.1)
[2017-08-19 09:49] LABS: BICARBONATE 29.1 MEQ/L (21.0-32.0)
[2017-08-19 09:52] LABS: CREATININE 0.83 MG/DL (0.60-1.30)
--- NOTE | 2017-08-19 10:16 | RSPPFT ---
DATE OF PROCEDURE: 08/18/17 COMMENTS: Spirometry shows FVC of 1.4 at 31% of predicted, FEV1 of 1.1 at 31%, FEV1/FVC ratio is normal. Flow is decreased at FEF 25, FEF 75 and FEF 25-75. There is no response after bronchodilator treatment. IMPRESSION: 1. Findings are suggestive of restrictive lung disease. 2. A complete pulmonary function study will be needed for further evaluation.
--- NOTE | 2017-08-19 10:56 | HHI.FF ---
Face to Face Verification Diagnosis: (1) Reactive airway disease (2) Bronchitis (3) Morbid obesity Physical Therapy Order: Improve ambulation Home Health Nursing Order: Oxygen administration education Instructions: nebulizer treatment instruction I have seen patient Alexandru Montes on 08/19/17. My clinical findings support the need for the requested home health care services because: Patient has SOB Deconditioned w/ increased weakness I certify that my clinical findings support that this patient is homebound because: Hx COPD- exertion dyspnea/weakness Francesco Knutson MD Aug 19, 2017 10:56
--- NOTE | 2017-08-19 11:01 | HHI.PR ---
Subjective Remarks Patient breathing a little better today will change to PO steroids and patient does not want to go to SNF will ask home health to evaluate will need oxygen at home and nebulizer plan for discharge tomorrow. Blood glucose elevated due to steroid use increase metformin to 1000mg bid for now. Objective Vitals GENERAL: SKIN: Warm and dry. HEAD: Atraumatic. Normocephalic. EYES: Pupils equal and round. No scleral icterus. No injection or drainage. ENT: No nasal bleeding or discharge. Mucous membranes pink and moist. NECK: Trachea midline. No JVD. CARDIOVASCULAR: Regular rate and rhythm. RESPIRATORY: No accessory muscle use. Rhonchi bases improving GASTROINTESTINAL: Abdomen soft, non-tender, nondistended. Hepatic and splenic margins not palpable. MUSCULOSKELETAL: Extremities without clubbing, cyanosis, or edema. No obvious deformities. NEUROLOGICAL: Awake and alert. No obvious cranial nerve deficits. Motor grossly within normal limits. Five out of 5 muscle strength in the arms and legs. Normal speech. PSYCHIATRIC: Appropriate mood and affect; insight and judgment normal. Vital Signs Date Time Temp Pulse Resp B/P (MAP) Pulse Ox O2 Delivery O2 Flow Rate FiO2 08/19/17 07:59 92 Nasal Cannula 2.00 08/19/17 07:50 96.9 57 20 126/58 (80) 97 08/19/17 00:00 97.8 52 18 163/72 (102) 93 08/18/17 20:54 97.7 63 19 130/63 (85) 95 08/18/17 19:40 92 Nasal Cannula 2.00 08/18/17 15:41 97.2 60 20 175/79 (111) 90 08/18/17 14:57 20 08/18/17 11:50 97.0 61 20 159/72 (101) 91 Result Diagram: 08/19/17 0840 08/19/17 0840 Imaging Last Impressions Chest X-Ray 08/16/17 1630 Signed Impressions: Service Date/Time: Wednesday, August 16, 2017 17:07 - CONCLUSION: No acute disease. Jose Gibbs MD Objective Remarks Exam: Morbidly obese white male. HEENT: Pupils equal, no scleral icterus, mouth negative Neck: No JVD Heart: RRR Lungs: still scattered wheezing Abdomen: very obese, nontender, soft Extremities: No edema Neuro: Alert, oriented A/P Problem List: (1) Reactive airway disease ICD Codes: J45.909 - Unspecified asthma, uncomplicated Status: Acute Plan: still with rhonchi Pulmonary added symbicort and will need PFT when more stable i believe will need home health to follow does not want SNF (2) Bronchitis ICD Codes: J40 - Bronchitis, not specified as acute or chronic Status: Acute Plan: as above on nebulizer steroids antibiotic (3) Type 2 diabetes mellitus with diabetic neuropathy ICD Codes: E11.40 - Type 2 diabetes mellitus with diabetic neuropathy, unspecified Status: Chronic Plan: increase metformin to 1000 bid (4) Hypertension ICD Codes: I10 - Essential (primary) hypertension Plan: continue home meds (5) Morbid obesity ICD Codes: E66.01 - Morbid (severe) obesity due to excess calories Plan: weight loss discussed Assessment and Plan Assessment: --Possible COPD with bronchitis and acute exacerbation --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 Continue Levaquin. He is still on oxygen. Will change to admission status. When his wheezing improves consideration of doing a PFT would be helpful to stratify what kind of underlying lung disease he may have. Dr Garciaiella to take over for me tomorrow. Continue Lovenox for DVT prophylaxis. Discharge Planning will discharge with home health Problem Qualifiers (1) Reactive airway disease: Qualified Codes: J45.41 - Moderate persistent asthma with (acute) exacerbation Francesco Knutson MD Aug 19, 2017 11:01
[2017-08-19] MEDS ORDERED: OXYGENDME NAS.CANULA (18:46)
[2017-08-19] MEDS ORDERED: NEBULIZER1 MI1 (18:48)
--- NOTE | 2017-08-19 19:16 | HHI.PR ---
Subjective Remarks 66 YOMorbidly obese Wm with COPD exac,ISHMAEL Breathing better Slept today Uses CPAP No fever or chills Weak, difficult to ambulate Objective Vital Signs Vital Signs Date Time Temp Pulse Resp B/P (MAP) Pulse Ox O2 Delivery O2 Flow Rate FiO2 08/19/17 15:50 96.6 56 20 145/68 (93) 94 08/19/17 14:41 93 Nasal Cannula 2.00 08/19/17 11:50 96.8 51 20 131/60 (83) 93 08/19/17 09:49 20 08/19/17 07:59 92 Nasal Cannula 2.00 08/19/17 07:50 96.9 57 20 126/58 (80) 97 08/19/17 00:00 97.8 52 18 163/72 (102) 93 08/18/17 20:54 97.7 63 19 130/63 (85) 95 08/18/17 19:40 92 Nasal Cannula 2.00 I/O 08/18/17 08/18/17 08/18/17 08/19/17 08/19/17 08/19/17 07:00 15:00 23:00 07:00 15:00 23:00 Intake Total 460 ml 1080 ml Balance 460 ml 1080 ml Intake Oral 460 ml 1080 ml # Voids 3 3 4 # Bowel Movements 0 0 Result Diagram: 08/19/17 0840 08/19/17 0840 Objective Remarks GENERAL: Morbidly obese Wm, mild sob SKIN: Warm and dry. HEAD: Normocephalic. EYES: No scleral icterus. No injection or drainage. NECK: Supple, trachea midline. No JVD or lymphadenopathy. CARDIOVASCULAR: Regular rate and rhythm without murmurs, gallops, or rubs. RESPIRATORY: Breath sounds equal bilaterally. No accessory muscle use. GASTROINTESTINAL: Abdomen soft, non-tender, nondistended. MUSCULOSKELETAL: No cyanosis, or edema. BACK: Nontender without obvious deformity. No CVA tenderness. A/P Assessment and Plan COPD exac Moebid obesity ISHMAEL DM HTN Arthritis PLAN: Aerosol nebs IV Solumedrol Cont Levaquin Symbicort 2 puffs bid CPAP at night and PRN DC plans underway. Gamaliel Peck MD Aug 19, 2017 19:16
[2017-08-19] MEDS: ENOXAPARIN SODIUM 40 MG/0.4 ML SYRINGE SQ SCH (20:56)
[2017-08-20] VITALS: BP 155/69; PULSE 60; RESP 22; TEMP 97.7; O2SAT 93
[2017-08-20] MEDS: RESP: ALBUTEROL 2.5 MG/IPRATROPIUM 0.5 MG NEB (SCH) NEB ×3 (04:08→11:28)
[2017-08-20 07:19] VITALS: O2SAT 93
[2017-08-20 08:00] VITALS: BP 139/73; PULSE 59; RESP 26; TEMP 97.5; O2SAT 88
[2017-08-20] MEDS: INSULIN ASPART SUPPLEMENTAL SCALE SQ SCH (08:00)
[2017-08-20 08:13] LABS: AUTOMATED NEUTROPHIL # 5.6 TH/MM3 (1.8-7.7); BASOPHIL # 0.1 TH/MM3 (0-0.2); EOSINOPHIL % 0.2 % (0.0-4.0); HEMATOCRIT 38.1 % (39.0-51.0); HEMOGLOBIN 12.4 GM/DL (13.0-17.0); LYMPH % 33.3 % (9.0-44.0); LYMPHOCYTE # 3.1 TH/MM3 (1.0-4.8); MEAN CELL VOLUME 93.6 FL (80.0-100.0); MEAN CORPUSCULAR HEMOGLOBIN 30.4 PG (27.0-34.0); MEAN CORPUSCULAR HGB CONC 32.4 % (32.0-36.0); MEAN PLATELET VOLUME 8.5 FL (7.0-11.0); MONO % 3.9 % (0.0-8.0); MONOCYTE # 0.4 TH/MM3 (0-0.9); NEUT % 61.6 % (16.0-70.0); PLATELET COUNT 122 TH/MM3 (150-450); RED BLOOD COUNT 4.07 MIL/MM3 (4.50-5.90); WHITE BLOOD COUNT 9.2 TH/MM3 (4.0-11.0)
[2017-08-20] MEDS: metFORMIN HCL 500 MG TAB PO SCH (08:23)
[2017-08-20] MEDS: ATORVASTATIN 40 MG TAB PO SCH (08:23)
[2017-08-20] MEDS: BUDESONIDE-FORMOTEROL 160/4.5 MCG INHALER INH SCH (08:23)
[2017-08-20] MEDS: ASPIRIN 81 MG CHEW TAB CHEW SCH (08:24)
[2017-08-20] MEDS: LEVOFLOXACIN 750 MG TAB PO SCH (08:24)
[2017-08-20] MEDS: LISINOPRIL 10 MG TAB PO SCH (08:24)
[2017-08-20] MEDS: MULTIVITAMIN TAB PO SCH (08:24)
[2017-08-20] MEDS: MELOXICAM 7.5 MG TAB PO SCH (08:24)
[2017-08-20] MEDS: ACETAMINOPHEN/HYDROcodone 325 MG/10 MG TAB PO PRN (08:29)
[2017-08-20 08:30] LABS: BICARBONATE 32.6 MEQ/L (21.0-32.0); CALCIUM 8.5 MG/DL (8.5-10.1); CREATININE 0.83 MG/DL (0.60-1.30)
[2017-08-20] MEDS ORDERED: predniSONE 20 MG TAB PO SCH (09:00)
[2017-08-20] MEDS ORDERED: Albuterol-Ipratropium Neb NEB (10:16)
[2017-08-20] MEDS ORDERED: LEVA750T9 PO (10:16)
[2017-08-20] MEDS ORDERED: SYMB160A INH (10:17)
[2017-08-20] MEDS ORDERED: PRED20 PO (10:30)
--- NOTE | 2017-08-20 10:31 | HHI.DS ---
Discharge Summary Admission Date Aug 17, 2017 at 12:23 Discharge Date: Aug 20, 2017 Admitting Diagnosis Reactive airway disease. Bronchitis. Hypoxemia. (1) Reactive airway disease Diagnosis: Principal ICD Codes: J45.909 - Unspecified asthma, uncomplicated Status: Acute (2) Bronchitis Diagnosis: Principal ICD Codes: J40 - Bronchitis, not specified as acute or chronic Status: Acute (3) Type 2 diabetes mellitus with diabetic neuropathy Diagnosis: Secondary ICD Codes: E11.40 - Type 2 diabetes mellitus with diabetic neuropathy, unspecified Status: Chronic (4) Hypertension Diagnosis: Secondary ICD Codes: I10 - Essential (primary) hypertension (5) Morbid obesity Diagnosis: Secondary ICD Codes: E66.01 - Morbid (severe) obesity due to excess calories Consultants pulmonary Brief History This is a 66-year-old white male who started with a cough about 4 days ago, with some low grade fever. He has had some gradual increased wheezing and shortness of breath. He has been using a nebulizer machine that his has at home. He came to the ED, where his O2 sat was a little low. He is not on oxygen at home. He has been giving breathing treatments in the ED, but still wheezing and tight and requiring 3 liters of oxygen to maintain his oxygen saturations in the low 90s. He was given Levaquin intravenous. A rapid flu test done was negative. His chest x-ray did not show any obvious infiltrates or pneumonia. He was given some Solu-Medrol in the ED as well. He denies ever being told he had any COPD, but his EHR had listed that he had emphysema and COPD, but I could not find any recent pulmonary function testing to confirm whether he has obstructive process of his lungs. He is admitted for further nebulizer treatments, steroid treatment, antibiotics and oxygen therapy. CBC/BMP: 08/20/17 0810 08/20/17 0810 Significant Findings Laboratory Tests Test 08/17/17 18:38 08/18/17 08:15 08/19/17 08:40 08/20/17 08:10 Red Blood Count 4.24 MIL/MM3 (4.50-5.90) 4.07 MIL/MM3 (4.50-5.90) Hemoglobin 12.9 GM/DL (13.0-17.0) 12.4 GM/DL (13.0-17.0) Platelet Count 139 TH/MM3 (150-450) 122 TH/MM3 (150-450) Neutrophils (%) (Auto) 79.6 % (16.0-70.0) Blood Urea Nitrogen 23 MG/DL (7-18) 23 MG/DL (7-18) Random Glucose 197 MG/DL (74-106) 113 MG/DL (74-106) Hematocrit 38.1 % (39.0-51.0) Carbon Dioxide Level 32.6 MEQ/L (21.0-32.0) Anion Gap 4 MEQ/L (5-15) PE at Discharge Exam: Morbidly obese white male. HEENT: Pupils equal, no scleral icterus, mouth negative Neck: No JVD Heart: RRR Lungs: still scattered wheezing Abdomen: very obese, nontender, soft Extremities: No edema Neuro: Alert, oriented Hospital Course Patient did ok in hospital ,is on home CPAP we continued iv steroids and changed to po and continued Levaquin daily ,patient will need nebulizer at home passed walk test so does not require home oxygen ,Patient morbid obese and needs to try and ambulate discussed with him . Patient lab work and chest XRAY were stable with no acute changes and pulmonary saw patient agreed with treatment added symbicort PFT in hospital consistent more with restrictive disorder but they do suggest rechecking as out patient. Patient i believe needs a few more days at REHAB to watch him but he refuses will send home today with home health to follow. Pt Condition on Discharge: Fair Discharge Disposition: Disch w/ Home Health Serv Discharge Instructions DIET: Follow Instructions for: Heart Healthy Diet Activities you can perform: Regular-No Restrictions New Medications: Budesonide-Formoterol Inh (Symbicort Inh) 160-4.5 Mcg/Act Aero 2 PUFF INH Q12HR for 10 Days, #1 INHALER 0 Refills Nebulizer (Nebulizer) 1 Mis Mis EA .XX DIRECTED for Breathing Treatment, #1 0 Refills Oxygen (O2) (Oxygen (O2)) Device LITER HUMA.CANULA CONTINUOUS for Prevent Hypoxemia, #2 Oxygen Concentrator Portable Gaseous 2 L/min via Nasal Canula Continuous For 12months Prednisone (Prednisone) 20 Mg Tab 40 MG PO DIRECTED for reactive airway disease for 7 Days, #7 TAB 0 Refills Levofloxacin (Levaquin) 750 Mg Tablet 750 MG PO DAILY for reactiveairway bronchitis MDD 750 for 7 Days, #7 CHEW 0 Refills [Albuterol-Ipratropium Neb] () 1 AMPULE NEBU 1 AMPULE NEB Q4HR NEB for reactive airway MDD 4 for 4 Days, #10 AMPULE 0 Refills Continued Medications: Aspirin (Aspirin) 81 Mg Chew 81 MG CHEW DAILY, TAB 0 Refills Fish Oil-Cholecalciferol (Fish Oil + D3) 1,200-1,000 Mg-Unit Cap 1 CAP PO DAILY for Nutritional Supplement, #30 CAP 0 Refills Hydrocodone-Acetaminophen (Hydrocodone-Acetaminophen) 10-325 mg Tab 1 TAB PO Q6H PRN for PAIN, TAB 0 Refills Lisinopril (Lisinopril) 10 Mg Tab 10 MG PO DAILY, #30 TAB 0 Refills Meloxicam (Meloxicam) 7.5 Mg Tab 7.5 MG PO BID for Arthritis Pain, TAB 0 Refills Metformin (Metformin) 500 Mg Tab 500 MG PO BIDPC for Blood Sugar Management, #60 TAB 0 Refills Multiple Vitamin (Multiple Vitamin) 1 Tab 1 TAB PO DAILY for Nutritional Supplement, TAB 0 Refills Simvastatin (Simvastatin) 80 Mg Tab 80 MG PO DAILY for Cholesterol Management, #30 TAB 0 Refills Francesco Knutson MD Aug 20, 2017 10:31
[2017-08-20 11:29] VITALS: O2SAT 92
[2017-08-20 12:00] VITALS: BP 173/79; PULSE 63; RESP 20; TEMP 97.2; O2SAT 90
== END 2017-08-20 13:37 | disposition home health service (06) | DRG 202 ==
LOC: PHED 15:55 → INTOOBSV 17:37 → PHEDA 17:37 → PH3A 20:01 → OBSVTOIN 08-17 12:23
PROVIDERS: ADMIT Family Medicine; ATTEND Family Medicine
DX: J45.41 Moderate persistent asthma with (acute) exacerbation (principal); J44.1 Chronic obstructive pulmonary disease with (acute) exacerbation; E11.40 Type 2 diabetes mellitus with diabetic neuropathy, unspecified; E11.21 Type 2 diabetes mellitus with diabetic nephropathy; D69.6 Thrombocytopenia, unspecified; E11.65 Type 2 diabetes mellitus with hyperglycemia; Z68.43 Body mass index [BMI] 50.0-59.9, adult; E66.01 Morbid (severe) obesity due to excess calories; I10 Essential (primary) hypertension; I71.4 Abdominal aortic aneurysm, without rupture; E78.5 Hyperlipidemia, unspecified; G47.33 Obstructive sleep apnea (adult) (pediatric); Z96.653 Presence of artificial knee joint, bilateral; G89.29 Other chronic pain; M54.5 Low back pain; F17.210 Nicotine dependence, cigarettes, uncomplicated; R06.03 Acute respiratory distress; M19.90 Unspecified osteoarthritis, unspecified site; R09.02 Hypoxemia; K76.0 Fatty (change of) liver, not elsewhere classified; T38.0X5A Adverse effect of glucocorticoids and synthetic analogues, initial encounter; R53.1 Weakness; Z79.84 Long term (current) use of oral hypoglycemic drugs
CPT/HCPCS: 36600; 71045; 80048; 80053; 82550; 82552; 82805; 82948; 83605; 83880; 84484; 85025; 85610; 85730; 87040; 87804; 93005; 94060; 94618; 94640; 94664; 96365; 96366; 96372; 96375; 96376; G0378; J1650; J1815; J1940; J1956; J2920; J2930; J7512